=== PATIENT | male | born 1990 | race African-American/Black ===

== ENCOUNTER 2020-11-18 12:37 | Emergency (ER) | payer SELFPAY ==
[~2020-11-18] VITALS: Ht 175.3 cm; Wt 91.0 kg
[2020-11-18 13:12] VITALS: BP 96/75
[2020-11-18] MEDS ORDERED: CEFTRIAXONE SODIUM 500 MG/VIAL IM ONE (13:45)
[2020-11-18] MEDS ORDERED: AZITHROMYCIN 500 MG TABLET PO ONE (13:45)
[2020-11-18 13:47] LABS: CLARITY URINE CLEAR (CLEAR); COLOR URINE YELLOW (YELLOW); KETONES URINE TRACE (NEGATIVE); LEUKOCYTE ESTERASE URINE 1+ (NEGATIVE); NITRITE URINE NEGATIVE (NEGATIVE); OCCULT BLOOD URINE TRACE (NEGATIVE); PH URINE 6.5 (4.5-8.0); PROTEIN URINE NEGATIVE (NEGATIVE); SPECIFIC GRAVITY URINE 1.034 (1.005-1.030)
== END 2020-11-18 14:40 | disposition home or self-care (01) ==
LOC: ER 12:37
DX: N34.2 Other urethritis (principal)
CPT/HCPCS: 81003; 87086; 96372; 99283; J0696